=== PATIENT | male | born 1960 | race Caucasian/White ===

== ENCOUNTER 2019-05-29 22:51 | Emergency (ER) | payer MEDICAID ==
[~2019-05-29] VITALS: Ht 162.6 cm; Wt 81.6 kg
[~2019-05-29 22:51] MED LIST: CEPH500C16 PO; CIPR500T4 PO; DOCU100C83 PO; DOXA2TAB32 PO; LEVO500T6 PO; RANI-287 PO; [UNRECOGNIZED DRUG - CODE] PO
[2019-05-29 23:00] VITALS: BP 138/70
--- NOTE | 2019-05-29 23:02 | NUR ---
TO LOBBY A/W BED AMBULtory
--- NOTE | 2019-05-29 23:26 | NUR ---
PATIENT AMB TO BED 10.
--- NOTE | 2019-05-29 23:38 | NUR ---
BIB SELF REPORTING THAT HIS LEG BAG FOR HIS CATHETER WAS LEAKING. NO PAIN REPORTED. PATIENT JUST WANTS A NEW LEG BAG. NO SYMPTOMS REPORTED. CATHETER IN PLACE, URINE DRAINING TO GRAVITY, URINE CLEAR YELLOW WITH NO FOUL SMELL. ERMD AWARE
--- NOTE | 2019-05-29 23:44 | NUR ---
LEG BAG PROVIDED. URINE DRAINING WITH GRAVITY.
[2019-05-30 00:05] VITALS: BP 138/70
--- NOTE | 2019-05-30 00:05 | NUR ---
Patient discharged with v/s stable. Written and verbal after care instructions given and explained. Patient verbalized understanding. Ambulatory with steady gait. All questions addressed prior to discharge. Advised to follow up with PMD.
== END 2019-05-30 00:05 | disposition home or self-care (01) ==
LOC: MED 22:51
DX: Z49.01 Encounter for fitting and adjustment of extracorporeal dialysis catheter (principal); R33.9 Retention of urine, unspecified; E11.9 Type 2 diabetes mellitus without complications; K21.9 Gastro-esophageal reflux disease without esophagitis; I10 Essential (primary) hypertension; Z79.899 Other long term (current) drug therapy
CPT/HCPCS: 51702; 99284

== ENCOUNTER 2019-05-31 02:00 | Emergency (ER) | payer MEDICAID ==
[~2019-05-31] VITALS: Ht 172.7 cm; Wt 93.4 kg
[2019-05-31 02:01] VITALS: BP_SYST 101; BP_SYST 185; BP_DIAS 106; BP_DIAS 69
--- NOTE | 2019-05-31 02:11 | NUR ---
Yolie barajas in ED - 05/31/19 at 0233 by LOY PT TO BED #11, FLU SWAB DONE
--- NOTE | 2019-05-31 02:25 | NUR ---
PT AMBUILATED TO BED #7
--- NOTE | 2019-05-31 02:25 | NUR ---
58 Y/O MALE C/O PAINFUL/DIFFICULTY URINATION TODAY. PATIENT REPORTS FEELING FULLNESS IN THE SUPRAPUBIC REGION 9/10 PAIN RADIATING TO THE RIGHT LOWER BACK. TENDERNESS UPON PALPATION. PATIENT STATES THAT HE WAS SEEN AT [facility] LAST TUESDAY FOR THE SAME REASON AND WAS PRESCRIBED CEPHALEXIN AND TAMSULOSIN. ERMD MADE AWARE OF STATUS. SIDE RAILX1. WILL CONTINUE TO MONITOR. NKA MEDICAL HX: HTN; GERD CEPHALEXIN, TAMSULOSIN
--- NOTE | 2019-05-31 02:38 | NUR ---
ERMD AT BEDSIDE EVALUATING PATIENT.
--- NOTE | 2019-05-31 02:48 | NUR ---
PLACED FELDER CATHETER 16 THAI; PATIENT TOLERATED WELL.
[2019-05-31 03:25] VITALS: BP 150/98
== END 2019-05-31 03:25 | disposition home or self-care (01) ==
LOC: MED 02:00
DX: R33.9 Retention of urine, unspecified (principal); E11.9 Type 2 diabetes mellitus without complications; K21.9 Gastro-esophageal reflux disease without esophagitis; I10 Essential (primary) hypertension; Z79.899 Other long term (current) drug therapy
CPT/HCPCS: 51702; 99284

== ENCOUNTER 2019-06-09 04:39 | Emergency (ER) | payer MEDICAID ==
[~2019-06-09] VITALS: Ht 162.6 cm; Wt 93.0 kg
[2019-06-09 04:52] VITALS: BP 147/72
--- NOTE | 2019-06-09 04:57 | NUR ---
AMBULATES TO BED 06 WITH UPRIGHT, STEADY GAIT.
--- NOTE | 2019-06-09 05:07 | NUR ---
58 Y/O MALE PRESENTS TO ED FOR FOLLOW UP REGARDING FELDER CATHETHER THAT WAS INSERTED 10 DAYS AGO DUE TO URINE RETENTION. PT STATES RETENTION HAS DECREASED SINCE THEN. ABDOMINAL PAIN HAS DECREASED TO 2/10. PT STATES DRINKING FLUIDS REGULARLY. PT VSS. ERMD AWARE. WILL CONTINUE TO MONITOR.
--- NOTE | 2019-06-09 06:39 | NUR ---
REMOVED FELDER CATHETER. PT TOLERATED PROCEDURE, NO COMPLICATIONS.
--- NOTE | 2019-06-09 06:41 | NUR ---
PT ABLE TO URINATE WITHOUT ANY PAIN. ERMD MADE AWARE.
[2019-06-09 06:54] VITALS: BP 130/78
--- NOTE | 2019-06-09 06:54 | NUR ---
PT DISCHARGED WITH PAPERWORK. EDUCATED PT REGARDING D/C DIAGNOSIS AND INSTRUCTIONS. PT VERBALIZED TEACHING WITH UNDERSTANDING. TOLD PT TO FOLLOW UP WITH PCP AND WHEN TO RETURN TO ED. PT STABLE ALL QUESTIONS ANSWERED.
== END 2019-06-09 06:54 | disposition home or self-care (01) ==
LOC: MED 04:39
DX: R33.9 Retention of urine, unspecified (principal); E11.9 Type 2 diabetes mellitus without complications; K21.9 Gastro-esophageal reflux disease without esophagitis; I10 Essential (primary) hypertension; Z79.899 Other long term (current) drug therapy; Z46.6 Encounter for fitting and adjustment of urinary device
CPT/HCPCS: 99283

== ENCOUNTER 2019-06-09 12:36 | Emergency (ER) | payer MEDICAID ==
[~2019-06-09] VITALS: Ht 162.6 cm; Wt 81.6 kg
[2019-06-09 12:53] VITALS: BP 150/105
--- NOTE | 2019-06-09 12:58 | NUR ---
PT AMB TO BED 11.
--- NOTE | 2019-06-09 13:35 | NUR ---
58 Y/O MALE PRESENTS WITH URINARY RETENTION. PT REPORTS THAT HE WAS IN [facility] ED THIS MORNING WITH BLADDER PAIN, AND STATES HIS INDWELLING FELDER CATH WAS REMOVED AROUND 0500. SINCE THEN, PATIENT HAS NOT BEEN ABLE TO URINATE AND IS HAVING INTENSE BLADDER PAIN. PT REPORTS WHEN HE TRIES TO URINATE, HE CAN ONLY PRODUCE A FEW DROPS. BLADDER IS DISTENDED. PAIN 10/10 SHARP, NON RADIATING. DENIES ANY RECENT ILLNESS. DENIES SOB/CHEST PAIN. RESP ARE EVEN AND UNLABORED. NO PMH NKA
[2019-06-09 14:49] VITALS: BP 135/72
== END 2019-06-09 14:49 | disposition home or self-care (01) ==
LOC: MED 12:36
DX: R33.9 Retention of urine, unspecified (principal); E11.9 Type 2 diabetes mellitus without complications; K21.9 Gastro-esophageal reflux disease without esophagitis; I10 Essential (primary) hypertension; Z79.899 Other long term (current) drug therapy
CPT/HCPCS: 51702; 99284

== ENCOUNTER 2020-09-16 01:05 | Emergency (ER) | payer MEDICAID ==
[~2020-09-16] VITALS: Ht 165.1 cm; Wt 90.7 kg
[2020-09-16 01:16] VITALS: BP 149/90
[2020-09-16 02:30] VITALS: BP 149/90
== END 2020-09-16 02:30 | disposition home or self-care (01) ==
LOC: MED 01:05
DX: R33.9 Retention of urine, unspecified (principal); E11.9 Type 2 diabetes mellitus without complications; I10 Essential (primary) hypertension; K21.9 Gastro-esophageal reflux disease without esophagitis; N40.0 Benign prostatic hyperplasia without lower urinary tract symptoms; Z79.899 Other long term (current) drug therapy
CPT/HCPCS: 51702; 99284

== ENCOUNTER 2020-09-24 10:53 | Emergency (ER) | payer MEDICAID ==
[~2020-09-24] VITALS: Ht 165.1 cm; Wt 81.6 kg
[2020-09-24 11:03] VITALS: BP 146/78
[2020-09-24 11:45] VITALS: BP 146/78
== END 2020-09-24 11:45 | disposition home or self-care (01) ==
LOC: MED 10:53
DX: N40.0 Benign prostatic hyperplasia without lower urinary tract symptoms (principal); Z46.6 Encounter for fitting and adjustment of urinary device; E11.9 Type 2 diabetes mellitus without complications; K21.9 Gastro-esophageal reflux disease without esophagitis; I10 Essential (primary) hypertension; Z79.899 Other long term (current) drug therapy
CPT/HCPCS: 99281

== ENCOUNTER 2020-09-30 11:33 | Emergency (ER) | payer MEDICAID ==
[~2020-09-30] VITALS: Ht 165.1 cm; Wt 81.6 kg
[2020-09-30 11:47] VITALS: BP 151/84
--- NOTE | 2020-09-30 12:13 | NUR ---
Ambulated to bed 11
--- NOTE | 2020-09-30 12:45 | NUR ---
MARY KAY Zamora is evaluating the patient at bedside.
[2020-09-30 14:10] LABS: APPEARANCE,URINE CLEAR (CLEAR); BILIRUBIN,URINE NEGATIVE (NEGATIVE); BLOOD, URINE NEGATIVE (NEGATIVE); COLOR,URINE AMBER (YELLOW); LEUKOCYTE ESTERASE ,URINE 1+ (NEGATIVE); NITRITE, URINE POSITIVE (NEGATIVE); PH,URINE 5.5 (5.0-9.0); UGLUCOSE NEGATIVE (NEGATIVE)
--- NOTE | 2020-09-30 14:18 | NUR ---
Lab at bedside.
[2020-09-30 14:33] LABS: RBC,URINE NONE SEEN /HPF (0-5)
[2020-09-30 14:34] LABS: BASOPHILS % (AUTO) 0.3 % (0.0-2.0); EOSINOPHILS % (AUTO) 0.5 % (0.0-4.0); HEMATOCRIT 41.3 % (36-52); HEMOGLOBIN 14.2 g/dL (12.0-18.0); LYMPHOCYTES # (AUTO) 0.6 K/uL (2.0-11.5); LYMPHOCYTES % (AUTO) 8.8 % (20.5-51.1); MEAN CORPUSCULAR HEMOGLOBIN 28 pg (27-31); MEAN CORPUSCULAR HGB CONC 35 g/dL (33-37); MEAN CORPUSCULAR VOLUME 82.1 fL (80-94); MONOCYTES # (AUTO) 0.6 K/uL (0.8-1.0); MONOCYTES % (AUTO) 8.1 % (1.7-9.3); NEUTROPHILS # (AUTO) 5.7 K/uL (1.8-7.7); NEUTROPHILS % (AUTO) 82.3 % (42.2-75.2); PLATELET COUNT (AUTO) 177 K/uL (140-450); RED BLOOD CELL COUNT(AUTO) 5.03 MIL/uL (4.20-6.10); RED CELL DISTRIBUTION WIDTH 13.2 % (11.6-13.7); WHITE BLOOD COUNT (AUTO) 6.9 K/uL (4.8-10.8)
[2020-09-30 14:46] LABS: ANION GAP 13.1 (8-16); CARBON DIOXIDE 26.7 mmol/L (21-32); CREATININE 0.7 mg/dL (0.6-1.3); POTASSIUM 3.8 mmol/L (3.5-5.1)
[2020-09-30 14:52] LABS: ALBUMIN 3.8 g/dL (3.4-5.0); TOTAL BILIRUBIN 0.6 mg/dL (0.0-1.0)
[2020-09-30] MEDS ORDERED: CEFP200T20 PO (15:36)
[2020-09-30 15:59] VITALS: BP 138/76
--- NOTE | 2020-09-30 15:59 | NUR ---
Patient discharged with v/s stable. Written and verbal after care instructions given and explained. Patient alert, oriented and verbalized understanding of instructions. Ambulatory with steady gait. All questions addressed prior to discharge. ID band removed. Patient advised to follow up with PMD. Rx of Cefpodoxime Proxetil given. Patient educated on indication of medication including possible reaction and side effects. Opportunity to ask questions provided and answered.
== END 2020-09-30 15:59 | disposition home or self-care (01) ==
LOC: MED 11:33
DX: R33.9 Retention of urine, unspecified (principal); N39.0 Urinary tract infection, site not specified; E11.9 Type 2 diabetes mellitus without complications; I10 Essential (primary) hypertension; K21.9 Gastro-esophageal reflux disease without esophagitis; Z79.899 Other long term (current) drug therapy
CPT/HCPCS: 36415; 51702; 80053; 81001; 85025; 87086; 99284

== ENCOUNTER 2021-01-28 18:38 | Emergency (ER) | payer MEDICAID ==
[~2021-01-28] VITALS: Ht 162.6 cm; Wt 87.1 kg
[~2021-01-28 18:38] MED LIST changes: +CEFP200T20 PO
[2021-01-28 19:12] VITALS: BP 184/98
--- NOTE | 2021-01-28 19:25 | NUR ---
TO BED AMBULATORY
--- NOTE | 2021-01-28 19:30 | NUR ---
PT. IS A 60 Y/O MALE THAT CAME INTO ED WITH C/O OF URINARY RETENTION. PT. STATES THAT HE HAD A FELDER CATHETER DISCONTINUED ON 01/19/21 AND WAS ABLE TO URINATE WITHOUT ANY DIFFICULTIES. PT. STATES IT ONLY STARTED YESTERDAY WHEN HE WAS NOT ABLE TO URINATE. PT. RATES PAIN AT 9/10 ON THE PAIN SCALE AT THIS TIME. SKIN IS PINK/WARM/DRY; AAOX4 WITH EVEN AND STEADY GAIT; HR EVEN AND REGULAR; PT DENIES ANY FEVER, CP, SOB, OR COUGH AT THIS TIME; VSS; PATIENT POSITIONED FOR COMFORT; HOB ELEVATED; BEDRAILS UP X2; BED DOWN. ER MD MADE AWARE OF PT STATUS.
--- NOTE | 2021-01-28 19:50 | NUR ---
16 KHMER FELDER CATHETER INSERTED. PT. TOLERATED WELL; 600 CC OF URINE COLLECTED
--- NOTE | 2021-01-28 19:55 | NUR ---
PT. STATES INSTANT RELIEF FROM PAIN AFTER INSERTION OF FELDER CATHETER.
[2021-01-28] MEDS ORDERED: CIPR500T4 PO (20:40)
[2021-01-28] MEDS ORDERED: IBUP-2213 PO (20:40)
[2021-01-28] MEDS ORDERED: PYR100 PO (20:40)
[2021-01-28 21:09] VITALS: BP 184/98
--- NOTE | 2021-01-28 21:09 | NUR ---
Patient discharged with v/s stable. Written and verbal after care instructions given and explained. Patient alert, oriented and verbalized understanding of instructions. Ambulatory with steady gait. All questions addressed prior to discharge. ID band removed. Patient advised to follow up with PMD. Rx of CIPRO, IBUPROFEN AND PYRIDIUM given. Patient educated on indication of medication including possible reaction and side effects. Opportunity to ask questions provided and answered.
== END 2021-01-28 21:09 | disposition home or self-care (01) ==
LOC: MED 18:38
DX: R33.9 Retention of urine, unspecified (principal); N39.0 Urinary tract infection, site not specified; E11.9 Type 2 diabetes mellitus without complications; K21.9 Gastro-esophageal reflux disease without esophagitis; I10 Essential (primary) hypertension; Z79.1 Long term (current) use of non-steroidal anti-inflammatories (NSAID); Z79.899 Other long term (current) drug therapy; Z79.2 Long term (current) use of antibiotics; Z79.891 Long term (current) use of opiate analgesic
CPT/HCPCS: 51702; 81002; 87086; 99284

== ENCOUNTER 2021-06-23 21:39 | Emergency (ER) | payer MEDICAID ==
[~2021-06-23] VITALS: Ht 165.1 cm; Wt 81.6 kg
[~2021-06-23 21:39] MED LIST changes: +IBUP-2213 PO; +PYR100 PO
[2021-06-23 21:50] VITALS: BP 156/84
--- NOTE | 2021-06-23 21:50 | NUR ---
to bed ambulatory
--- NOTE | 2021-06-23 21:56 | NUR ---
Patient BIB by family from home. C/O right flank pain and urinary retention x 3 days. Patient reported, had constipation, right flank pain, lower abdominal pain and urinary retention , Hx BPH, HTN and DM.
--- NOTE | 2021-06-23 22:11 | NUR ---
Dr. Brower at bedside to exam patient.
--- NOTE | 2021-06-23 22:20 | NUR ---
# 14 FR FoleyCOUDE catheter with LEG BAG WITH ml utilizing sterile technique. Immediate return of CLEAR YELLOW URINE OUTPUT Bedside drainage bag placed below level of bladder. Urine sample collected and sent to lab. Pt tolerated procedure WELL.
--- NOTE | 2021-06-23 22:26 | NUR ---
Blood for labwork drawn from left arm per [employer] sales representative. Patient tolerated well.
[2021-06-23 22:31] LABS: APPEARANCE,URINE SL CLOUDY (CLEAR); BILIRUBIN,URINE NEGATIVE (NEGATIVE); BLOOD, URINE 3+ (NEGATIVE); COLOR,URINE YELLOW (YELLOW); LEUKOCYTE ESTERASE ,URINE 2+ (NEGATIVE); NITRITE, URINE POSITIVE (NEGATIVE); UGLUCOSE NEGATIVE (NEGATIVE)
[2021-06-23 22:31] LABS: BASOPHILS % (AUTO) 0.3 % (0.0-2.0); EOSINOPHILS % (AUTO) 0.2 % (0.0-4.0); HEMATOCRIT 42.8 % (36-52); HEMOGLOBIN 14.6 g/dL (12.0-18.0); LYMPHOCYTES # (AUTO) 0.8 K/uL (2.0-11.5); LYMPHOCYTES % (AUTO) 6.7 % (20.5-51.1); MEAN CORPUSCULAR HEMOGLOBIN 28 pg (27-31); MEAN CORPUSCULAR HGB CONC 34 g/dL (33-37); MEAN CORPUSCULAR VOLUME 81.5 fL (80-94); MONOCYTES # (AUTO) 0.8 K/uL (0.8-1.0); MONOCYTES % (AUTO) 7.2 % (1.7-9.3); NEUTROPHILS # (AUTO) 9.6 K/uL (1.8-7.7); NEUTROPHILS % (AUTO) 85.6 % (42.2-75.2); PLATELET COUNT (AUTO) 191 K/uL (140-450); RED BLOOD CELL COUNT(AUTO) 5.25 MIL/uL (4.20-6.10); RED CELL DISTRIBUTION WIDTH 14.2 % (11.6-13.7); WHITE BLOOD COUNT (AUTO) 11.2 K/uL (4.8-10.8)
[2021-06-23 22:43] LABS: RBC,URINE 0-5 /HPF (0-5); WBC,URINE TOO MANY TO COUNT /HPF (0-5)
--- NOTE | 2021-06-23 22:46 | NUR ---
Patient empty urine bag ~ 500 ML.
[2021-06-23 22:48] LABS: ALBUMIN 4.2 g/dL (3.4-5.0); CARBON DIOXIDE 24.6 mmol/L (21-32); CREATININE 0.8 mg/dL (0.6-1.3); POTASSIUM 3.6 mmol/L (3.5-5.1); TOTAL BILIRUBIN 0.8 mg/dL (0.0-1.0)
[2021-06-23] MEDS ORDERED: CEPH250C16 PO (22:54)
[2021-06-23] MEDS ORDERED: TAMS0.4C96 PO (22:54)
--- NOTE | 2021-06-23 22:54 | NUR ---
Dr. Brower at bedside to explain results and treatment plans with air brake man.
[2021-06-23 23:01] VITALS: BP 144/75
--- NOTE | 2021-06-23 23:01 | NUR ---
Patient discharged with v/s stable. Written and verbal after care instructions given and explained. Patient alert, oriented and verbalized understanding of instructions. Ambulatory with steady gait. All questions addressed prior to discharge. ID band removed. Patient advised to follow up with PMD. Rx of Flomax and Cephalexin given. Patient educated on indication of medication including possible reaction and side effects. Opportunity to ask questions provided and answered.
== END 2021-06-23 23:01 | disposition home or self-care (01) ==
LOC: MED 21:39
DX: N39.0 Urinary tract infection, site not specified (principal); R33.9 Retention of urine, unspecified; K59.00 Constipation, unspecified; E11.9 Type 2 diabetes mellitus without complications; K21.9 Gastro-esophageal reflux disease without esophagitis; I10 Essential (primary) hypertension; Z79.899 Other long term (current) drug therapy
CPT/HCPCS: 36415; 51702; 80053; 81001; 85025; 87086; 99284

== ENCOUNTER 2021-07-06 12:38 | Emergency (ER) | payer MEDICAID ==
[~2021-07-06] VITALS: Ht 165.1 cm; Wt 99.8 kg
[~2021-07-06 12:38] MED LIST changes: +CEPH250C16 PO; +TAMS0.4C96 PO
[2021-07-06 12:50] VITALS: BP 190/88
--- NOTE | 2021-07-06 12:50 | NUR ---
60 Y/O M AMBULATED TO BED 3, C/O ABD, PROSTATE PAIN, NOT ABLE TO URINATE, CONSTIPATION NKDA PMD: PROSATE
--- NOTE | 2021-07-06 12:50 | NUR ---
Patient ambulated with steady gait to bed 3.
--- NOTE | 2021-07-06 13:19 | NUR ---
DR WELLINGTON AT BEDSIDE EVALUATING PT
--- NOTE | 2021-07-06 13:50 | NUR ---
f/c inserted using sterile technique.
[2021-07-06] MEDS ORDERED: SULF-58 PO (14:26)
[2021-07-06 14:42] VITALS: BP 141/58
== END 2021-07-06 14:40 | disposition home or self-care (01) ==
LOC: MED 12:38
DX: N40.1 Benign prostatic hyperplasia with lower urinary tract symptoms (principal); R33.9 Retention of urine, unspecified; E11.9 Type 2 diabetes mellitus without complications; I10 Essential (primary) hypertension; K21.9 Gastro-esophageal reflux disease without esophagitis; Z79.899 Other long term (current) drug therapy
CPT/HCPCS: 51702; 81002; 99284

== ENCOUNTER 2021-07-30 02:15 | Emergency (ER) | payer MEDICAID ==
[~2021-07-30] VITALS: Ht 170.2 cm; Wt 81.6 kg
[~2021-07-30 02:15] MED LIST changes: +SULF-58 PO
[2021-07-30 02:19] VITALS: BP 116/65
[2021-07-30 03:07] VITALS: BP 116/65
== END 2021-07-30 03:07 | disposition home or self-care (01) ==
LOC: MED 02:15
DX: R33.9 Retention of urine, unspecified (principal); E11.9 Type 2 diabetes mellitus without complications; I10 Essential (primary) hypertension; K21.9 Gastro-esophageal reflux disease without esophagitis; Z79.899 Other long term (current) drug therapy
CPT/HCPCS: 51702; 99284

== ENCOUNTER 2021-09-03 12:14 | Emergency (ER) | payer MEDICAID ==
[~2021-09-03] VITALS: Ht 158.8 cm; Wt 83.9 kg
[2021-09-03 12:31] VITALS: BP 187/88
--- NOTE | 2021-09-03 12:44 | NUR ---
PT AMBULATED TO ER BED 3
--- NOTE | 2021-09-03 13:25 | NUR ---
ASSUMED PATIENT CARE, NURSING ASSESSMENT COMPLETED. SEEN AND EVLAUATED BY CHRISTI JO COMPLETED.
--- NOTE | 2021-09-03 13:36 | NUR ---
FR 16 FC INSERTED WITHOUT DIFFICULTY.
[2021-09-03] MEDS ORDERED: TAMSULOSIN 0.4 MG CAP PO STA (13:56)
[2021-09-03] MEDS ORDERED: TAMS0.4C96 PO (14:39)
[2021-09-03 15:14] LABS: BILIRUBIN,URINE NEGATIVE (NEGATIVE); BLOOD, URINE 3+ (NEGATIVE); LEUKOCYTE ESTERASE ,URINE 1+ (NEGATIVE); NITRITE, URINE POSITIVE (NEGATIVE); PH,URINE 5.5 (5.0-9.0); UGLUCOSE NEGATIVE (NEGATIVE)
[2021-09-03 15:19] LABS: APPEARANCE,URINE HAZY (CLEAR); COLOR,URINE YELLOW (YELLOW)
[2021-09-03 15:37] LABS: RBC,URINE 0-5 /HPF (0-5); WBC,URINE 0-5 /HPF (0-5)
[2021-09-03] MEDS ORDERED: CEPH250C16 PO (15:47)
--- NOTE | 2021-09-03 16:59 | NUR ---
Patient discharged with v/s stable. Written and verbal after care instructions given and explained. Patient alert, oriented and verbalized understanding of instructions. Ambulatory with steady gait. All questions addressed prior to discharge. ID band removed. Patient advised to follow up with PMD. Rx of FLOMAX AND KEFLEX given. Patient educated on indication of medication including possible reaction and side effects. Opportunity to ask questions provided and answered.
[2021-09-03 17:02] VITALS: BP 146/57
[2021-09-04] MEDS ORDERED: TAMSULOSIN 0.4 MG CAP PO SCH (08:30)
[2021-09-07] MEDS ORDERED: NITR100C7 PO (23:08)
== END 2021-09-03 17:02 | disposition home or self-care (01) ==
LOC: MED 12:14
DX: R33.9 Retention of urine, unspecified (principal); Z79.2 Long term (current) use of antibiotics; Z79.899 Other long term (current) drug therapy; Z79.1 Long term (current) use of non-steroidal anti-inflammatories (NSAID); Z79.891 Long term (current) use of opiate analgesic
CPT/HCPCS: 51702; 81001; 87086; 99284

== ENCOUNTER 2021-11-18 12:57 | Emergency (ER) | payer MEDICAID ==
[~2021-11-18] VITALS: Ht 165.1 cm; Wt 82.7 kg
[~2021-11-18 12:57] MED LIST changes: +NITR100C7 PO
[2021-11-18 13:09] VITALS: BP 154/81
--- NOTE | 2021-11-18 13:15 | NUR ---
PT AMBULATED TO BED 09.
--- NOTE | 2021-11-18 13:15 | NUR ---
PT AMB TO BED 9.
--- NOTE | 2021-11-18 13:18 | NUR ---
pt ambulated to restroom with steady gait.
--- NOTE | 2021-11-18 13:40 | NUR ---
61 y/o male c/o abdominal pain and urine retention. Unable to urinate since 9pm last night. Hx of BPH. on Flomax but has not taken in 10 days. Reports 9/10 stabbing pain, non-radiating. Denies fever, chills, sob, cp.
--- NOTE | 2021-11-18 13:53 | NUR ---
# 16 FR [place] catheter with 10 ml utilizing sterile technique. Immediate return of 450 ml urine noted. Leg drainage bag placed below level of bladder. Urine sample collected and sent to lab. Pt tolerated procedure well.
[2021-11-18] MEDS ORDERED: CIPR500T4 PO (14:08)
[2021-11-18 14:10] VITALS: BP 154/81
--- NOTE | 2021-11-18 14:10 | NUR ---
Patient discharged with v/s stable. Written and verbal after care instructions about urinary retention, uti given and explained. Patient alert, oriented and verbalized understanding of instructions. Ambulatory with steady gait. All questions addressed prior to discharge. ID band removed. Patient advised to follow up with PMD. Rx of Cipro given. Patient educated on indication of medication including possible reaction and side effects. Opportunity to ask questions provided and answered.
== END 2021-11-18 14:10 | disposition home or self-care (01) ==
LOC: MED 12:57
DX: N39.0 Urinary tract infection, site not specified (principal); R33.9 Retention of urine, unspecified; Z79.899 Other long term (current) drug therapy
CPT/HCPCS: 51702; 81002; 99284